=== PATIENT | male | born 1970 | race Caucasian/White ===

== ENCOUNTER → 2020-12-08 | Day surgery (SDC) | payer BC ==
[~2020-12-08] MED LIST: Midazolam 1 MG/ML 2 ML SDV ONE; Propofol 200 MG/20 ML SDV ONE; Sodium Chloride 0.9% 1,000 ML IV SCH; fentaNYL 100 MCG/2 ML SDV ONE
--- NOTE | 2020-12-09 10:12 | OR ---
DATE OF PROCEDURE: 12/08/2020 SURGEON: Zack Ashley MD PROCEDURES: 1. Esophagogastroduodenoscopy. 2. Colonoscopy. FINDINGS: 1. Patulous-type area of salmon-colored tissue at the GE junction concerning for reflux disease (biopsied in all 4 quadrants using cold biopsy forceps). 2. Probable sliding hiatal hernia approximately 4 cm in size at the GE junction. 3. Cecal polyp, approximately 8 mm, completely removed using endoscopic mucosal resection techniques. 4. Sigmoid colon polyp, 3 mm or less, completely removed using cold biopsy forceps. COMPLICATIONS: None. 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 ANESTHESIA: MAC. PREOPERATIVE DIAGNOSIS: Epigastric pain/screening colonoscopy. POSTOPERATIVE DIAGNOSIS: Epigastric pain/screening colonoscopy. RISKS: Risks, benefits, alternatives, and limitations including but not limited to infection, bleeding, perforation, false positives and false negatives were explained to the patient and he wished to proceed. PROCEDURE IN DETAIL: The patient was placed in left lateral decubitus position. The EGD scope was introduced and advanced atraumatically to the second part of the duodenum. No evidence of duodenitis or ulceration. Within the stomach itself, there was no gastritis or ulceration. At the GE junction, the patient had scattered patulous-type areas concerning for reflux disease. These ranged in size mostly less than 1 cm. These were biopsied using cold biopsy forceps. This was performed in all 4 quadrants. The air was removed from the stomach. Esophagus is normal. Digital rectal exam was then performed next. Scope was introduced and advanced atraumatically to the ileocecal valve. Within the cecum itself, there was approximately 5 to 8 mm polyp. This was resected using endoscopic mucosal resection by injecting in all 4 quadrants and below this using sodium chloride as the elevating agent. This was then removed with a snare device. No significant bleeding was noted after removal. The scope was brought back to the remainder of the colon where the second polyp was identified and subsequently removed. No colitis. No old or new blood. No masses. No other abnormalities. No abnormalities on retroflexion. Greater than 8 minutes was spent removing the scope. Prep was acceptable, approximately 90% of the luminal surface could be seen. The patient tolerated the procedure well. Zack Ashley MD /[id number]
== END ==
LOC: JP.SDS 06:35
PROVIDERS: ATTEND Surgery
DX: Z12.11 Encounter for screening for malignant neoplasm of colon (principal); K63.5 Polyp of colon; K20.90 Esophagitis, unspecified without bleeding; K22.70 Barrett's esophagus without dysplasia; K63.89 Other specified diseases of intestine
CPT/HCPCS: J2250; J2704; J3010; J7030

== ENCOUNTER 2021-02-08 19:34 | Emergency (ER) | payer BC ==
[2021-02-08] MEDS ORDERED: Acetaminophen 325 MG Tab PO ONE (20:38)
--- NOTE | 2021-02-08 21:23 | EDM.PDOC ---
ED HPI GENERAL MEDICAL PROBLEM - General Chief Complaint: Fever Stated Complaint: SEIZURE AND FEVER/ALL OVER BODY ACHE Time Seen by Provider: 02/08/21 20:41 Source of Information: Reports: Patient History Limitations: Reports: No Limitations - History of Present Illness INITIAL COMMENTS - FREE TEXT/NARRATIVE: chief complaint; fever this is a 50 year old male presents to the ER with , reports fever, nausea, vomiting for 50 hours. no other family members are ill not vaccinated for Covid 19 Onset: Gradual Onset Date: 02/06/21 Duration: Day(s): (2) Location: Reports: Generalized Quality: Reports: Other (weakness) Severity: Moderate Improves with: Reports: Rest Worsens with: Reports: Eating, Movement Context: Reports: Other (Covid 19 symptoms) Associated Symptoms: Reports: Cough, Fever/Chills, Headaches, Loss of Appetite, Malaise, Nausea/Vomiting denies Pain Score (Numeric/FACES): 0 - Related Data Allergies Allergy/AdvReac Type Severity Reaction Status Date / Time No Known Allergies Allergy Verified 12/08/20 07:10 Home Meds: Home Meds Omeprazole 20 mg PO DAILY 12/05/20 [History] Past Medical History Gastrointestinal History: Reports: GERD Neurological History: Reports: Concussion - Infectious Disease History Infectious Disease History: Reports: Chicken Pox, Novel Coronavirus - Past Surgical History GI Surgical History: Reports: EGD Social & Family History - Family History Family Medical History: No Pertinent Family History - Tobacco Use Tobacco Use Status *Q: Never Tobacco User Second Hand Smoke Exposure: No - Caffeine Use Caffeine Use: Reports: None - Alcohol Use Days Per Week of Alcohol Use: 4 Number of Drinks Per Day: 6 Total Drinks Per Week: 24 - Recreational Drug Use Recreational Drug Use: No - Living Situation & Occupation Living situation: Reports: Occupation: Employed (lives with ) ED ROS GENERAL - Review of Systems Review Of Systems: See Below Constitutional: Reports: No Symptoms, Fever, Chills, Malaise, Weakness, Fatigue, Decreased Appetite HEENT: Reports: No Symptoms Respiratory: Reports: No Symptoms Cardiovascular: Reports: No Symptoms Endocrine: Reports: Fatigue GI/Abdominal: Reports: Decreased Appetite, Nausea, Vomiting : Reports: Other (last void > 12 hours) Musculoskeletal: Reports: No Symptoms Skin: Reports: No Symptoms Neurological: Reports: No Symptoms Psychiatric: Reports: No Symptoms Hematologic/Lymphatic: Reports: No Symptoms Immunologic: Reports: No Symptoms ED EXAM, GENERAL - Physical Exam Exam: See Below Exam Limited By: No Limitations General Appearance: Alert, WD/WN, Other (pallor, weakness) Eye Exam: Bilateral Eye: EOMI, PERRL Ears: Normal External Exam, Normal Canal, Hearing Grossly Normal, Normal TMs Ear Exam: Bilateral Ear: Auricle Normal, Canal Normal, TM normal Nose: Normal Inspection, Normal Mucosa, No Blood Throat/Mouth: Normal Inspection, Normal Lips, Normal Teeth, Normal Gums, Normal Oropharynx, Normal Voice, No Airway Compromise Head: Atraumatic, Normocephalic Neck: Normal Inspection, Supple, Non-Tender, Full Range of Motion Respiratory/Chest: No Respiratory Distress, Lungs Clear, Normal Breath Sounds, No Accessory Muscle Use, Chest Non-Tender Cardiovascular: Normal Peripheral Pulses, Regular Rate, Rhythm, No Edema, No Murmur, No Rub GI/Abdominal: Normal Bowel Sounds, Soft, Non-Tender, No Organomegaly, No Distention, No Abnormal Bruit, No Mass (Male) Exam: Deferred Rectal (Males) Exam: Deferred Back Exam: Normal Inspection, Full Range of Motion Extremities: Normal Inspection, Normal Range of Motion, Non-Tender, No Pedal Edema, Normal Capillary Refill Neurological: Alert, Oriented, No Motor/Sensory Deficits Psychiatric: Normal Affect, Normal Mood Skin Exam: Warm, Dry, Intact, No Rash, Pallor Lymphatic: No Adenopathy Course - Vital Signs Last Recorded V/S: Last Vital Signs Temp 102.2 F H 02/08/21 20:47 Pulse 82 02/08/21 20:35 Resp 24 H 02/08/21 20:35 BP 100/45 L 02/08/21 20:35 Pulse Ox 94 L 02/08/21 20:35 - Orders/Labs/Meds Orders: Active Orders 24 hr Category Date Time Status UA W/MICROSCOPIC [URIN] Urgent Lab 02/08/21 20:02 Ordered Labs: Laboratory Tests 02/08/21 02/08/21 02/08/21 Range/Units 19:45 19:45 19:45 WBC (4.5-11.0) K/uL RBC (4.30-5.90) M/uL Hgb (12.0-15.0) g/dL Hct (40.0-54.0) % MCV (80-98) fL MCH (27-31) pg MCHC (32-36) % Plt Count (150-400) K/uL Neut % (Auto) (36-66) % Lymph % (Auto) (24-44) % Potter % (Auto) (2-6) % Eos % (Auto) (2-4) % Baso % (Auto) (0-1) % PT 11.0 (9.5-12.0) sec INR 1.01 (0.80-1.20) D-Dimer, Quantitative 447.12 (0.0-500.0) ng/mL Sodium (140-148) mmol/L Potassium (3.6-5.2) mmol/L Chloride (100-108) mmol/L Carbon Dioxide (21-32) mmol/L Anion Gap (5.0-14.0) mmol/L BUN (7-18) mg/dL Creatinine (0.8-1.3) mg/dL Est Cr Clr Drug Dosing Estimated GFR (MDRD) (>60) Glucose (74-106) mg/dL Lactic Acid (0.4-2.0) mmol/L Calcium (8.5-10.1) mg/dL Magnesium (1.8-2.4) mg/dL Total Bilirubin (0.2-1.0) mg/dL AST (15-37) U/L ALT (12-78) U/L Alkaline Phosphatase (46-116) U/L Troponin I < 0.017 (0.000-0.056) ng/mL NT-Pro-B Natriuret Pep (5-125) pg/mL Total Protein (6.4-8.2) g/dL Albumin (3.4-5.0) g/dL Globulin (2.3-3.5) g/dL Albumin/Globulin Ratio (1.2-2.2) Amylase (25-115) U/L Lipase (73-393) U/L SARS CoV-2 RNA Rapid RNOEY 02/08/21 02/08/21 02/08/21 Range/Units 19:45 19:45 19:45 WBC 5.7 (4.5-11.0) K/uL RBC 4.83 (4.30-5.90) M/uL Hgb 15.1 H (12.0-15.0) g/dL Hct 44.5 (40.0-54.0) % MCV 92 (80-98) fL MCH 31 (27-31) pg MCHC 34 (32-36) % Plt Count 122 L (150-400) K/uL Neut % (Auto) 49.2 (36-66) % Lymph % (Auto) 34.3 (24-44) % Potter % (Auto) 15.9 H (2-6) % Eos % (Auto) 0.2 L (2-4) % Baso % (Auto) 0.4 (0-1) % PT (9.5-12.0) sec INR (0.80-1.20) D-Dimer, Quantitative (0.0-500.0) ng/mL Sodium 132 L (140-148) mmol/L Potassium 3.9 (3.6-5.2) mmol/L Chloride 100 (100-108) mmol/L Carbon Dioxide 25 (21-32) mmol/L Anion Gap 10.9 (5.0-14.0) mmol/L BUN 16 (7-18) mg/dL Creatinine 1.5 H (0.8-1.3) mg/dL Est Cr Clr Drug Dosing TNP Estimated GFR (MDRD) 49 L (>60) Glucose 119 H (74-106) mg/dL Lactic Acid 1.1 (0.4-2.0) mmol/L Calcium 8.6 (8.5-10.1) mg/dL Magnesium 1.7 L (1.8-2.4) mg/dL Total Bilirubin 1.2 H (0.2-1.0) mg/dL AST 34 (15-37) U/L ALT 57 (12-78) U/L Alkaline Phosphatase 58 (46-116) U/L Troponin I (0.000-0.056) ng/mL NT-Pro-B Natriuret Pep 34 (5-125) pg/mL Total Protein 7.0 (6.4-8.2) g/dL Albumin 3.3 L (3.4-5.0) g/dL Globulin 3.7 H (2.3-3.5) g/dL Albumin/Globulin Ratio 0.9 L (1.2-2.2) Amylase 56 (25-115) U/L Lipase 155 (73-393) U/L SARS CoV-2 RNA Rapid RONEY 02/08/21 Range/Units 20:01 WBC (4.5-11.0) K/uL RBC (4.30-5.90) M/uL Hgb (12.0-15.0) g/dL Hct (40.0-54.0) % MCV (80-98) fL MCH (27-31) pg MCHC (32-36) % Plt Count (150-400) K/uL Neut % (Auto) (36-66) % Lymph % (Auto) (24-44) % Potter % (Auto) (2-6) % Eos % (Auto) (2-4) % Baso % (Auto) (0-1) % PT (9.5-12.0) sec INR (0.80-1.20) D-Dimer, Quantitative (0.0-500.0) ng/mL Sodium (140-148) mmol/L Potassium (3.6-5.2) mmol/L Chloride (100-108) mmol/L Carbon Dioxide (21-32) mmol/L Anion Gap (5.0-14.0) mmol/L BUN (7-18) mg/dL Creatinine (0.8-1.3) mg/dL Est Cr Clr Drug Dosing Estimated GFR (MDRD) (>60) Glucose (74-106) mg/dL Lactic Acid (0.4-2.0) mmol/L Calcium (8.5-10.1) mg/dL Magnesium (1.8-2.4) mg/dL Total Bilirubin (0.2-1.0) mg/dL AST (15-37) U/L ALT (12-78) U/L Alkaline Phosphatase (46-116) U/L Troponin I (0.000-0.056) ng/mL NT-Pro-B Natriuret Pep (5-125) pg/mL Total Protein (6.4-8.2) g/dL Albumin (3.4-5.0) g/dL Globulin (2.3-3.5) g/dL Albumin/Globulin Ratio (1.2-2.2) Amylase (25-115) U/L Lipase (73-393) U/L SARS CoV-2 RNA Rapid RONEY Positive H Meds: Medications Discontinued Medications Generic Name Dose Route Start Last Admin Trade Name Joanna PRN Reason Stop Dose Admin Acetaminophen 650 mg 02/08/21 20:38 02/08/21 20:47 Acetaminophen 325 Mg Tab PO 02/08/21 20:39 650 mg NOW ONE Administration - Re-Assessments/Exams Free Text/Narrative Re-Assessment/Exam: 02/08/21 22:25 covid positive- discussed plan of care and treatment with Monooclonal Antibiotic Therapy -supportive treatment -work slip given -stay home for 10 days -given discharge instructions related to Covid treatment and stay at home Departure - Departure Time of Disposition: 22:29 Disposition: Home, Self-Care 01 Condition: Good Clinical Impression: COVID-19 - Discharge Information *PRESCRIPTION DRUG MONITORING PROGRAM REVIEWED*: Not Applicable *COPY OF PRESCRIPTION DRUG MONITORING REPORT IN PATIENT CARLY: Not Applicable Instructions: COVID-19 Vaccine Information, What You Should Know About COVID-19 to Protect Yourself and Others - [facility], 10 Things You Can Do to Manage Your COVID-19 Symptoms at Home - [facility] (11/24/2019), Fever, Adult, [id number] Referrals: PCP,None [Primary Care Provider] - Forms: ED Department Discharge, ED Return to Work/School Form Care Plan Goals: Covid 19 -order Monoclonal Antibody Therapy - Pharmacy will contact you tomorrow with time -treat Fever with Tylenol or Motrin -treat nausea with Zofran 4 mg one every 8 hours as needed for nausea and vomiting -treat shortness of breath or cough with Albuterol MDI 2 puffs every 4 hours as needed -painful cough - Robitussin with codeine 10 ml every 4 hours as needed -will need to stay at home for 10 days - do not go out in community- stay away from others Return to ER for worsen symptoms, shortness of breath, or any concerns. Sepsis Event Note (ED) - Evaluation Sepsis Screening Result: Possible Sepsis Risk - Focused Exam Vital Signs: Vital Signs Temp Temp Pulse Resp BP Pulse Ox 02/08/21 20:47 102.2 F H 02/08/21 20:35 102.2 F H 82 24 H 100/45 L 94 L 02/08/21 20:00 101.7 F H 80 25 H 108/65 93 L - Problem List & Annotations (1) COVID-19 SNOMED Code(s): 814275141 Code(s): U07.1 - COVID-19 Status: Acute Priority: High Current Visit: Yes - Problem List Review Problem List Initiated/Reviewed/Updated: Yes - My Orders Last 24 Hours: My Active Orders 02/08/21 20:02 UA W/MICROSCOPIC [URIN] Urgent - Assessment/Plan Last 24 Hours: My Active Orders 02/08/21 20:02 UA W/MICROSCOPIC [URIN] Urgent Plan: Covid 19 -order Monoclonal Antibody Therapy - Pharmacy will contact you tomorrow with time -treat Fever with Tylenol or Motrin -treat nausea with Zofran 4 mg one every 8 hours as needed for nausea and vomiting -treat shortness of breath or cough with Albuterol MDI 2 puffs every 4 hours as needed -painful cough - Robitussin with codeine 10 ml every 4 hours as needed -will need to stay at home for 10 days - do not go out in community- stay away from others Return to ER for worsen symptoms, shortness of breath, or any concerns.
== END 2021-02-08 22:15 | disposition home or self-care (01) ==
LOC: JP.ED 19:34
DX: U07.1 COVID-19 (principal); K21.9 Gastro-esophageal reflux disease without esophagitis; Z79.899 Other long term (current) drug therapy
CPT/HCPCS: 36415; 80053; 82150; 83605; 83690; 83735; 83880; 84484; 85025; 85379; 85610; 87635; 99283; A9270; U0002

== ENCOUNTER 2022-12-13 06:22 | Day surgery (SDC) | payer BC ==
[2022-12-13] MEDS ORDERED: Sodium Chloride 0.9% 1,000 ML IV SCH (07:00)
[2022-12-13] MEDS ORDERED: Propofol 200 MG/20 ML SDV ONE (07:14)
[2022-12-13] MEDS ORDERED: Midazolam 1 MG/ML 2 ML SDV ONE (07:14)
[2022-12-13] MEDS ORDERED: fentaNYL 50 MCG/ML SDV ONE (07:14)
== END 2022-12-13 09:05 | disposition home or self-care (01) ==
LOC: JP.SDS 06:22
PROVIDERS: ATTEND Surgery
DX: K22.89 Other specified disease of esophagus (principal); K44.9 Diaphragmatic hernia without obstruction or gangrene; K21.9 Gastro-esophageal reflux disease without esophagitis; Z87.19 Personal history of other diseases of the digestive system
CPT/HCPCS: 43239; 88305; J2250; J2704; J3010; J7030